=== PATIENT | female | born 1995 | race African-American/Black ===

== ENCOUNTER 2021-09-21 15:50 | Emergency (ER) | payer BC, SELFPAY ==
--- NOTE | ~2021-09-21 | CT_ITS ---
EXAMINATION: CT abdomen pelvis w con DATE: 09/21/2021 17:12 INDICATION: Abdomen pain with nausea, vomiting and diarrhea. TECHNIQUE: Computed tomography (CT) of the abdomen and pelvis was performed with 100 cc Omnipaque 350 intravenous contrast. The dose-length product was 304.78 mGy-cm. Automated exposure control and iter ative reconstruction technique were employed. COMPARISON: None. FINDINGS: There is a 2 mm left lower lobe nodule, likely benign. Right lower lung is unremarkable. He art size normal. No significant pleural or pericardial effusion. No significant vascular abnormality. No lymphadenopathy. No free air. No acute osseous abnormality. There is focal fatty infiltration of the liver near the falciform ligament. The spleen, pancreas, adr enal glands and kidneys are unremarkable. Gallbladder is present. Nonobstructive bowel gas pattern. B ladder is unremarkable. Trace free fluid in the pelvis. IMPRESSION: 1. No acute abdominal abnormality. Reviewed, dictated and finalized at location A. IOLOGIST
[2021-09-21 15:52] VITALS: BP 117/82; PULSE 88; RESP 24; TEMP 36.1; O2SAT 100
--- NOTE | 2021-09-21 16:01 | ED.ABDPAIN ---
HPI - Abdominal Pain General Chief Complaint: Abdominal Pain Stated Complaint: N/V/D Time Seen by Provider: 09/21/21 15:55 Source: patient Mode of arrival: ambulatory Limitations: no limitations History of Present Illness HPI narrative: 26 year old female presents today with complaints of N/V/D that started about 4am this morning. Patient works midnights. States she ate taco bernal at about 1am then started with symptoms at 4. No one else ate toco bernal. Patient denies cough, runny nose, sore throat, body aches, chills, or fever. Related Data Allergies Allergy/AdvReac Type Severity Reaction Status Date / Time No Known Allergies Allergy Verified 09/21/21 17:31 Review of Systems Review of Systems: CONSTITUTIONAL: Denies fever, chills, or sweats. EYES: Denies visual changes, redness, or discharge. ENT: Denies rhinorrhea, congestion, sore throat, or otalgia. CARDIOVASCULAR: Denies chest pain, palpitations, or edema. RESPIRATORY: Denies cough or dyspnea. GASTROINTESTINAL: Positive for nausea, vomiting, and diarrhea. Denies abdominal pain. GENITOURINARY: Denies dysuria or hematuria. SKIN: Denies rash or itching. MUSCULOSKELETAL: Denies back pain, joint pain, or myalgia. NEUROLOGIC: Denies headache, numbness, dizziness, or weakness. PSYCHIATRIC: Denies anxiety or depression. Exam Narrative: GENERAL: Well-appearing, well-nourished, and in no acute distress. HEAD: Normocephalic, atraumatic. EYES: PERRLA and EOMI. ENT: Nares clear, no rhinorrhea or epistaxis. Mucous membranes moist. Oropharynx without tonsillar hypertrophy exudate or other lesions. Bilateral TMs pearly aquino nonbulging NECK: Supple. No adenopathy or masses. No carotid bruits or JVD CHEST: Clear to auscultation. No respiratory distress. No wheezes rales or rhonchi HEART: Regular rate and rhythm. No murmur heard. Normal peripheral pulses. ABDOMEN: Soft, generalized tenderness with palpation, negative rebound tenderness, negative McBurney's point, Nondistended, normal active bowel sounds. EXTREMITIES: Normal range of motion. No edema. SKIN: Warm, dry, no rash. NEURO: No focal deficits. Alert and oriented x3. PSYCH: Normal mood and affect. Course Course Emergency Course: Patient feeling better after IV fluids and Zofran. All results reviewed. Patient will be discharged home recommend follow-up with primary. Vital Signs Vital signs: Vital Signs Temperature 36.1 C L 09/21/21 15:52 Pulse Rate 88 09/21/21 15:52 Respiratory Rate 24 H 09/21/21 15:52 Blood Pressure 117/82 09/21/21 15:52 Pulse Oximetry 100 09/21/21 15:52 Temperature 36.1 C L 09/21/21 15:52 Pulse Rate 88 09/21/21 15:52 Respiratory Rate 24 H 09/21/21 15:52 Blood Pressure 117/82 09/21/21 15:52 Pulse Oximetry 100 09/21/21 15:52 MDM - Abdominal Pain MDM Narrative Medical decision making narrative: Patient with HPI as documented. Patient is comfortable after interventions. Will discharge home plan follow-up with primary. Medical Records Attestation: I reviewed the patient's medical records. Lab Data Attestation: I reviewed the patient's lab results. Result diagrams: 09/21/21 16:16 09/21/21 16:16 Labs: Lab Results 09/21/21 09/21/21 09/21/21 Range/Units 16:16 16:16 16:16 WBC 9.9 (4.5-10.0) K/mm3 RBC 4.98 (4.2-5.4) M/mm3 Hgb 14.8 (12.0-15.0) g/dL Hct 43.4 (37.0-47.0) % MCV 87.1 (80-100) fl MCH 29.7 (26-34) pg MCHC 34.1 (32-36) g/dl RDW 12.3 (11.5-14.5) % Plt Count 255 (150-375) k/mm3 MPV 10.0 (7.4-10.4) fl Immature Gran % (Auto) 0.3 (0-0.5) % Neut % (Auto) 93.2 H (45.5-73.1) % Lymph % (Auto) 3.3 L (18.3-44.2) % [place] % (Auto) 2.9 (2.6-8.5) % Eos % (Auto) 0.0 (0-4.4) % Baso % (Auto) 0.3 (0.2-1.2) % Lymph # (Auto) 0.33 L (0.9-3.2) K/mm3 [place] # (Auto) 0.3 (0.1-0.6) K/mm3 Eos # (Auto) 0.0 (0-0.3) K/mm3 Baso # (Auto) 0.0 (0.0-0.1) K/m
[2021-09-21] MEDS: LACTATED RINGERS 1,000 ML 999 ML IV CONT (16:19)
[2021-09-21] MEDS: ONDANSETRON INJ 4 MG/2 ML VIAL IV PUSH (16:19)
[2021-09-21 16:23] LABS: Basophils Percent Auto 0.3 % (0.2-1.2); Hematocrit 43.4 % (37.0-47.0); Hemoglobin 14.8 g/dL (12.0-15.0); Immature Granulocyte Absolute 0.03 K/mm3 (0.00-0.031); Immature Granulocyte Percent A 0.3 % (0-0.5); Lymphocytes Absolute Auto 0.33 K/mm3 (0.9-3.2); Lymphocytes Percent Auto 3.3 % (18.3-44.2); Mean Corpuscular HGB Conc 34.1 g/dl (32-36); Mean Corpuscular Hemoglobin 29.7 pg (26-34); Mean Corpuscular Volume 87.1 fl (80-100); Monocytes Absolute Auto 0.3 K/mm3 (0.1-0.6); Monocytes Percent Auto 2.9 % (2.6-8.5); Neutrophils Absolute Auto 9.3 K/mm3 (1.3-6.7); Neutrophils Percent Auto 93.2 % (45.5-73.1); Platelet Count Result 255 k/mm3 (150-375); Red Blood Count 4.98 M/mm3 (4.2-5.4); Red Cell Distribution Width 12.3 % (11.5-14.5); White Blood Count 9.9 K/mm3 (4.5-10.0)
[2021-09-21] MEDS: DICYCLOMINE HCL 10 MG CAPSULE 20 MG PO (16:30)
[2021-09-21 16:31] LABS: Add Urine Microscopic? YES; Appearance Urine Cloudy (Clear); Bilirubin Urine Negative (Negative); Blood Urine Negative (Negative); Color Urine Yellow (Yellow); Glucose Urine UA Negative (Negative); Ketones Urine 2+ mg/dL (Negative); Leukocyte Esterase Ur Negative LEU/UL (Negative); Mucus Urine Few /lpf; Nitrate Urine Negative (Negative); Protein Urine 1+ mg/dL (Negative); Squamous Epithelial Cell Urine Few /hpf (Few); Urobilinogen Urine Negative mg/dL (<2.0); WBC Urine 0-3 /hpf
[2021-09-21 16:34] LABS: Alanine Aminotransferase 36 U/L (4-35); Albumin Level 5.2 g/dL (3.5-5.1); Alkaline Phosphatase 65 U/L (38-126); Anion Gap 13 mmol/L (8-16); Aspartate Amino Transferase 49 U/L (14-36); Bilirubin,Total 1.3 mg/dL (0.2-1.3); Blood Urea Nitrogen 15 mg/dL (7-17); Calcium 10.2 mg/dL (8.4-10.2); Carbon Dioxide 20 mmol/L (22-30); Chloride 107 mmol/L (98-107); Estimated CRCL calculation 94 ml/min; Estimated Glomerular Filt Rate > 60; Glucose 128 mg/dL (65-110); Lipase 104 U/L (23-300); Sodium 140 mmol/L (137-145)
[2021-09-21 17:05] LABS: SARS-CoV-2 RNA PCR Negative
== END 2021-09-21 17:51 | disposition home or self-care (01) ==
PROVIDERS: Emergency Provider Nurse Practitioner Family
DX: R10.84 Generalized abdominal pain (principal); R11.2 Nausea with vomiting, unspecified; Z20.822 Contact with and (suspected) exposure to COVID-19
CPT/HCPCS: 36415; 74177; 80053; 81001; 81025; 83690; 85025; 96361; 96374; 99284; A9270; C9803; J2405; J7120; Q9967; U0003; U0005